=== PATIENT | male | born 1975 ===

== ENCOUNTER 2018-11-20 07:52 | Emergency (ER) | payer BC ==
[2018-11-20 08:11] VITALS: BP 137/91
[2018-11-20] MEDS ORDERED: HYDROcodone/ACETAMIN 5-325 MG* 1 TAB PO ONE (08:24)
--- NOTE | 2018-11-20 08:24 | UC ---
Dental HPI - HPI Summary HPI Summary: PATIENT WITH LONG-STANDING HISTORY OF KNOWN DIFFUSE POOR DENTITION ARRIVES WITH LEFT FACIAL SWELLING AND DENTAL PAIN THAT STARTED 5 DAYS AGO. NO TRAUMA. SYMPTOMS GOT MUCH WORSE LAST NIGHT. HE DOES NOT HAVE A DENTIST. NO FEVER. - History of Current Complaint Chief Complaint: UCDentalProblem Stated Complaint: TOOTH PAIN Time Seen by Provider: 11/20/18 08:21 Hx Obtained From: Patient, Family/Sprinkler Tender - Onset/Duration: Gradual Onset, Lasting Days, Still Present Severity: Moderate Pain Intensity: 6 Pain Scale Used: 0-10 Numeric Aggravating Factor(s): Heat, Cold, Chewing Alleviating Factor(s): Nothing - Allergies/Home Medications Allergies/Adverse Reactions: Allergies Allergy/AdvReac Type Severity Reaction Status Date / Time No Known Allergies Allergy Verified 11/20/18 09:28 PMH/Surg Hx/FS Hx/Imm Hx Previously Healthy: Yes - Surgical History Surgical History: None - Family History Known Family History: Positive: Non-Contributory - Social History Alcohol Use: None Alcohol Amount: 1-2 drinks a day - sometimes not every day Substance Use Type: None Substance Use Comment - Amount & Last Used: daily Smoking Status (MU): Former Smoker - Immunization History Most Recent Influenza Vaccination: never Most Recent Tetanus Shot: november 2014 Review of Systems All Other Systems Reviewed And Are Negative: Yes Constitutional: Positive: Negative ENT: Positive: Dental Pain Respiratory: Positive: Negative Cardiovascular: Positive: Negative Gastrointestinal: Positive: Negative Physical Exam Triage Information Reviewed: Yes Appearance: Well-Appearing, Well-Nourished, Pain Distress - MODERATE Vital Signs: Initial Vital Signs Temp 97.7 F 11/20/18 08:00 Pulse 76 11/20/18 08:00 Resp 16 11/20/18 08:00 BP 137/91 11/20/18 08:00 Pulse Ox 99 11/20/18 08:00 Vital Signs Reviewed: Yes Eyes: Positive: Conjunctiva Clear ENT: Positive: Hearing grossly normal Dental: Positive: Percussion Tenderness @ - LEFT UPPER CANINE, Gross Decay/ Caries @ - DIFFUSE Neck: Positive: Supple, Nontender, No Lymphadenopathy Respiratory: Positive: No respiratory distress, No accessory muscle use Cardiovascular: Positive: Pulses Normal Abdomen Description: Positive: Soft Musculoskeletal: Positive: ROM Intact Neurological: Positive: Alert Psychological: Positive: Age Appropriate Behavior Skin: Positive: Other - LEFT FACIAL SWELLING UP TO LOWER EYELID. TENDER. NO FLUCTUANCE. Dental Complaint Course/Dx - Course Course Of Treatment: PT WITH DIFFUSE DENTAL DECAY WITH WORSENING LEFT UPPER DENTAL PAIN AND FACIAL SWELLING. NO FEVER. NO AIRWAY COMPROMISE. NO CHAPMAN OR NAUSEA. NO VISUAL DISTURBANCE. WILL COVER FOR INFECTION WITH ANTIBIOTICS. OTC MEDS FOR PAIN. HYDROCODONE FOR BREAKTHROUGH. PERIDEX MOUTH RINSE. DENTAL CONTACTS PROVIDED. PARENT EDUCATOR CLEAR. Reference #: [id number] - Differential Dx/Diagnosis Provider Diagnosis: Dental abscess Discharge - Sign-Out/Discharge Documenting (check all that apply): Patient Departure All imaging exams completed and their final reports reviewed: No Studies - Discharge Plan Condition: Stable Disposition: HOME Prescriptions: Amoxicillin/Clavulanate TAB* [Augmentin TAB 875*] 875 mg PO BID #20 tab Chlorhexidine MW 0.12% 473ML* [Peridex Mouth Wash 0.12%*] 15 ml SWISH SPIT BID # 1 bottle HYDROcodone/ACETAMIN 5-325 MG* [[place] 5-325 TAB*] 1 tab PO Q6H PRN #20 tab MDD 4 PRN Reason: Pain Patient Education Materials: Dental Abscess (ED), Toothache (ED) Referrals: No Primary Care Phys,NOPCP [Primary Care Provider] - Additional Instructions: TAKE THE ANTIBIOTICS FOR THE FULL COURSE. RINSE YOUR MOUTH WITH WATER AFTER EATING OR DRINKING ANYTHING. ANTISEPTIC MOUTH RINSE TWICE DAILY. OTC MEDS NEEDED FOR DISCOMFORT. HYDROCODONE FOR BREAKTHROUGH PAIN. FOLLOW-UP WITH A DENTIST TOSHA. IBUPROFEN MAX DOSE: 600MG (3 TABS) EVERY 6 HRS OR 800MG (4 TABS) EVERY 8 HRS OR NAPROXEN MAX DOSE: 440MG (2 TABS) EVERY 12 HRS TYLENOL MAX DOSE: 1000MG (2 EXTRA STRENGTH TABS) EVERY 8 HRS OR 650MG (2 REGULAR TABS) EVERY 6 HRS [facility]ISTS [facility] DDS Dentist Office [address], [place] [address] [address] Kit Mansfield, DDS [address] [place] [address] Niranjan Scanlon D.D.S. [address], [place], [place] [id number] Op[facility] at 8am CALL THE NUMBER BELOW FOR ASSISTANCE IN ESTABLISHING WITH A PCP An additional resource available to assist in finding the appropriate physician for your health care needs is the [facility] ([facility]). You may contact them by calling [phone]. - Billing Disposition and Condition Condition: STABLE Disposition: Home
== END 2018-11-20 09:28 | disposition home or self-care (01) ==
LOC: UCEAST 07:52
DX: K04.7 Periapical abscess without sinus (principal); Z87.891 Personal history of nicotine dependence
CPT/HCPCS: 99202; G0463

== ENCOUNTER 2019-03-18 13:02 | Emergency (ER) | payer BC ==
[2019-03-18 13:12] VITALS: BP 124/70
--- NOTE | 2019-03-18 13:21 | UC ---
Skin Complaint HPI - HPI Summary HPI Summary: left lower leg redness and pain x 3 days pain in 4 out of 10, worse with touch, nothing makes it better + redness, swelling, warm to touch, hx of leg cellulites no fever, no chills , no injury - History of Current Complaint Chief Complaint: UCSkin Time Seen by Provider: 03/18/19 13:13 Stated Complaint: LT LEG RED SWOLLEN Hx Obtained From: Patient Onset/Duration: Gradual Onset, Lasting Days - 3, Still Present Timing: Constant Onset Severity: Mild Current Severity: Mild Pain Intensity: 3 Location: Discrete - left lower leg Character: Swelling, Pain, Redness, Painful Aggravating Factor(s): Touch Alleviating Factor(s): Nothing Associated Signs & Symptoms: Negative: Nausea, Vomiting, Numbness, Fever, Chills - Allergy/Home Medications Allergies/Adverse Reactions: Allergies Allergy/AdvReac Type Severity Reaction Status Date / Time No Known Allergies Allergy Verified 03/18/19 13:12 PMH/Surg Hx/FS Hx/Imm Hx Previously Healthy: Yes - Surgical History Surgical History: None - Family History Known Family History: Positive: Non-Contributory - Social History Alcohol Use: None Alcohol Amount: 1-2 drinks a day - sometimes not every day Substance Use Type: Marijuana Substance Use Comment - Amount & Last Used: daily Smoking Status (MU): Former Smoker - Immunization History Most Recent Influenza Vaccination: never Most Recent Tetanus Shot: november 2014 Review of Systems All Other Systems Reviewed And Are Negative: Yes Constitutional: Positive: Negative Eyes: Positive: Negative ENT: Positive: Negative Respiratory: Positive: Negative Is Patient Immunocompromised?: No Physical Exam Triage Information Reviewed: Yes Appearance: Well-Appearing, No Pain Distress, Well-Nourished Vital Signs: Initial Vital Signs Temp 98 F 03/18/19 13:10 Pulse 94 03/18/19 13:10 Resp 17 03/18/19 13:10 BP 124/70 03/18/19 13:10 Pulse Ox 100 03/18/19 13:10 Vital Signs Reviewed: Yes Eye Exam: Normal Eyes: Positive: Conjunctiva Clear ENT: Positive: Normal ENT inspection, Hearing grossly normal, Pharynx normal Neck: Positive: Supple, Nontender, No Lymphadenopathy Respiratory: Positive: Chest non-tender, Lungs clear, Normal breath sounds Cardiovascular: Positive: RRR, No Murmur, Pulses Normal Skin: Positive: Other - area of erythema left lower leg , + tenderness, mild swelling, warm to touch Course/Dx - Diagnoses Provider Diagnosis: Cellulitis of left lower leg Discharge - Sign-Out/Discharge Documenting (check all that apply): Patient Departure All imaging exams completed and their final reports reviewed: No Studies - Discharge Plan Condition: Stable Disposition: HOME Prescriptions: Cephalexin CAP* [Keflex CAP*] 500 mg PO TID #30 cap Patient Education Materials: Cellulitis (ED) Referrals: Ashley Alvarado PA [Primary Care Provider] - If Needed - Billing Disposition and Condition Condition: STABLE Disposition: Home
== END 2019-03-18 13:21 | disposition home or self-care (01) ==
LOC: UCEAST 13:02
DX: L03.116 Cellulitis of left lower limb (principal); Z87.891 Personal history of nicotine dependence
CPT/HCPCS: 99212; G0463